=== PATIENT | male | born 1945 | race Caucasian/White ===

== ENCOUNTER 2017-06-16 23:57 | Observation (INO) ==
[2017-06-17] MEDS ORDERED: ASPIRIN 325 MG TABLET PO STA (00:53)
[2017-06-17] MEDS ORDERED: KETOROLAC 30 MG/1 ML VIAL IV STA (00:53)
[2017-06-17] MEDS ORDERED: ASPIRIN 325 MG TABLET ONE (01:51)
[2017-06-17] MEDS ORDERED: KETOROLAC 30 MG/1 ML VIAL ONE (01:51)
[2017-06-17 01:53] LABS: Basophils % 0.8 % (0.0-0.8); Eosinophils # 0.2 10*3/uL (0.0-0.87); Eosinophils % 4.4 % (0.00-10.9); Hematocrit 44.4 VOL% (42.0-52.0); Hemoglobin 14.6 GM/DL (14.0-18.0); Immature Granulocytes % 0.6 %; Immature Granulocytes Absolute 0.03 #; Lymphocytes # 1.7 10*3/uL (1.4-4.0); Lymphocytes % 33.5 % (21.2-54.2); Mean Corpuscular HGB Conc 32.9 GM/DL (32-36); Mean Corpuscular Hemoglobin 31 PG (27-34); Mean Corpuscular Volume 95.3 FL (87-102); Mean Platelet Volume 9.1 FL (9.6-12.0); Monocytes # 0.5 10*3/uL (0.11-0.8); Monocytes % 9.5 % (1.7-12.7); Neutrophils # 2.6 10*3/uL (1.4-7.4); Neutrophils % 51.2 % (38.7-73.9); Platelet Count 150 T/CUMM (130-400); Red Blood Count 4.66 MC/CUMM (3.8-5.5)
[2017-06-17 02:10] LABS: Albumin 3.5 G/DL (3.4-5.0); Bilirubin,Total 0.4 MG/DL (0.2-1.0); Calcium 9.5 MG/DL (8.5-10.1); Osmolality,Calculated 286.4 MOS/KG (273-304); Potassium 4.1 MMOL/L (3.5-5.1); Total Protein 7.5 G/DL (6.4-8.3)
[2017-06-17] MEDS ORDERED: ACETAMINOPHEN 325 MG TABLET PO PRN (04:07)
[2017-06-17] MEDS ORDERED: MORPHINE 2 MG/1 ML SYRINGE IV PRN (04:07)
[2017-06-17] MEDS ORDERED: ONDANSETRON 4 MG/2 ML VIAL IV PRN (04:07)
[2017-06-17] MEDS ORDERED: ALBUTEROL/IPRATROPIUM 3 ML NEB RESP TX PRN (04:12)
[2017-06-17] MEDS ORDERED: GLUCAGON 1 MG VIAL IM PRN (04:29)
[2017-06-17] MEDS ORDERED: DEXTROSE 50% 25 GM/50 ML VIAL IV PRN (04:29)
[2017-06-17 07:26] LABS: Risk Ratio 3.7; VLDL CHOLESTEROL 68.6 MG/DL
[2017-06-17] MEDS: INSULIN LISPRO 100 UNIT/ML SUBCUT SCH ×3 (07:56→15:57)
[2017-06-17] MEDS ORDERED: ASPIRIN 325 MG TABLET PO SCH (09:00)
[2017-06-17] MEDS ORDERED: POLYETHYLENE GLYCOL POWDER 17 GM PACK PO SCH (09:00)
[2017-06-17] MEDS ORDERED: ENOXAPARIN 40 MG/0.4 ML SYRINGE SUBCUT SCH (09:00)
[2017-06-17] MEDS ORDERED: PANTOPRAZOLE 40 MG TABLET PO SCH (09:00)
[2017-06-17 15:44] VITALS: BP 134/71
== END 2017-06-17 17:00 | disposition home or self-care (01) ==
LOC: N.ED 23:57 → N.EDINP 23:57 → N.TELEN 06-17 04:34
PROVIDERS: ADMIT Internal Medicine; ATTEND Internal Medicine

== ENCOUNTER 2018-04-26 05:57 | Inpatient (IN) ==
[2018-04-26] MEDS ORDERED: ERTAPENEM 1,000 MG in SODIUM CHLORIDE 0.9% 100 ML IV ONE (06:00)
[2018-04-26] MEDS ORDERED: ALVIMOPAN 12 MG CAPSULE PO ONE (06:00)
[2018-04-26] MEDS ORDERED: ALVIMOPAN 12 MG CAPSULE ONE (06:12)
[2018-04-26] MEDS ORDERED: ERTAPENEM 1,000 MG VIAL ONE (06:13)
[2018-04-26] MEDS ORDERED: LACTATED RINGERS 1,000 ML IV SCH (07:00)
[2018-04-26] MEDS ORDERED: INDOCYANINE GREEN 25 MG VIAL IV ONE (08:05)
[2018-04-26] MEDS ORDERED: TISSUE ADHESIVE 1 EACH APPLICATOR TOP ONE (08:05)
[2018-04-26] MEDS ORDERED: ONDANSETRON 4 MG/2 ML VIAL ONE ×2 (10:26→10:39)
[2018-04-26] MEDS ORDERED: PROPOFOL 200 MG/20 ML VIAL IV ONE (10:26)
[2018-04-26] MEDS ORDERED: SEVOFLURANE 1 UNIT/15 MINUTE INH ONE (10:26)
[2018-04-26] MEDS ORDERED: fentaNYL 100 MCG/2 ML VIAL ONE (10:26)
[2018-04-26] MEDS ORDERED: ACETAMINOPHEN 1,000 MG/100 ML VIAL IV ONE (10:27)
[2018-04-26] MEDS ORDERED: ROCURONIUM 100 MG/10 ML VIAL IV ONE (10:27)
[2018-04-26] MEDS ORDERED: LACTATED RINGERS 1,000 ML IV ONE (10:27)
[2018-04-26] MEDS ORDERED: NEOSTIGMINE 10 MG/10 ML VIAL ONE (10:27)
[2018-04-26] MEDS ORDERED: GLYCOPYRROLATE 0.4 MG/2 ML VIAL ONE (10:27)
[2018-04-26] MEDS ORDERED: PHENYLEPHRINE 1 MG/10 ML SYRINGE IV ONE (10:27)
[2018-04-26] MEDS ORDERED: ONDANSETRON 4 MG/2 ML VIAL IV PRN ×2 (10:34→11:49)
[2018-04-26] MEDS ORDERED: HYDROmorphone 2 MG/1 ML VIAL ONE (10:39)
[2018-04-26] MEDS: HYDROmorphone 2 MG/1 ML VIAL IV PRN ×4 (10:41→10:56)
[2018-04-26] MEDS ORDERED: HYDROmorphone 2 MG/1 ML VIAL IV PRN (11:49)
[2018-04-26] MEDS ORDERED: PROMETHAZINE 25 MG/1 ML VIAL IM PRN (11:49)
[2018-04-26] MEDS ORDERED: ALBUTEROL 0.63 MG/3 ML NEB RESP TX PRN (12:17)
[2018-04-26] MEDS ORDERED: NON-FORMULARY MEDICATION (Albuterol Sulfate [Ventolin Hfa] 2 PUFF) INH PRN (12:17)
[2018-04-26 12:27] LABS: Basophils % 0.4 % (0.0-0.8); Eosinophils # 0.1 10*3/uL (0.0-0.87); Eosinophils % 1.1 % (0.00-10.9); Hematocrit 43.4 VOL% (42.0-52.0); Hemoglobin 13.6 GM/DL (14.0-18.0); Immature Granulocytes % 0.4 %; Immature Granulocytes Absolute 0.03 #; Lymphocytes # 1.1 10*3/uL (1.4-4.0); Lymphocytes % 13.7 % (21.2-54.2); Mean Corpuscular HGB Conc 31.3 GM/DL (32-36); Mean Corpuscular Hemoglobin 30 PG (27-34); Mean Corpuscular Volume 96.9 FL (87-102); Mean Platelet Volume 8.9 FL (9.6-12.0); Monocytes # 0.4 10*3/uL (0.11-0.8); Monocytes % 4.6 % (1.7-12.7); Neutrophils # 6.4 10*3/uL (1.4-7.4); Neutrophils % 79.8 % (38.7-73.9); Platelet Count 166 T/CUMM (130-400); Red Blood Count 4.48 MC/CUMM (3.8-5.5); Red Cell Distribution Width 13.8 % (9.3-17.3)
[2018-04-26 12:59] LABS: Calcium 8.3 MG/DL (8.5-10.1); Osmolality,Calculated 283.3 MOS/KG (273-304); Potassium 4.5 MMOL/L (3.5-5.1)
[2018-04-26] MEDS: LACTATED RINGERS 1,000 ML IV SCH ×2 (13:25→21:11)
[2018-04-26] MEDS: KETOROLAC 15 MG/1 ML VIAL IV SCH ×2 (15:21→21:02)
[2018-04-26] MEDS: CARBIDOPA/LEVODOPA 25-100 MG TABLET PO SCH ×2 (15:21→21:01)
[2018-04-26] MEDS: PRAMIPEXOLE 1 MG TABLET PO SCH ×2 (15:21→21:01)
[2018-04-26] MEDS: THEOPHYLLINE ER 300 MG TABLET PO SCH (16:20)
[2018-04-26] MEDS: IPRATROPIUM 500 MCG/2.5 ML NEB RESP TX SCH (19:23)
[2018-04-26] MEDS ORDERED: MONTELUKAST 10 MG TABLET PO SCH (21:00)
[2018-04-26] MEDS ORDERED: [UNRECOGNIZED DRUG - OTHER] PO SCH (21:00)
[2018-04-26] MEDS ORDERED: DONEPEZIL 5 MG TABLET PO SCH (21:00)
[2018-04-26] MEDS: DICLOFENAC 1% GEL 100 GM TUBE TOP SCH (21:02)
[2018-04-27] MEDS: KETOROLAC 15 MG/1 ML VIAL IV SCH ×2 (02:54→08:38)
[2018-04-27 05:24] LABS: Calcium 8.1 MG/DL (8.5-10.1); Osmolality,Calculated 281.4 MOS/KG (273-304); Potassium 4.4 MMOL/L (3.5-5.1)
[2018-04-27 05:32] LABS: Basophils % 0.3 % (0.0-0.8); Eosinophils # 0.1 10*3/uL (0.0-0.87); Hematocrit 39.4 VOL% (42.0-52.0); Hemoglobin 12.5 GM/DL (14.0-18.0); Immature Granulocytes % 0.5 %; Immature Granulocytes Absolute 0.04 #; Lymphocytes # 0.9 10*3/uL (1.4-4.0); Lymphocytes % 10.2 % (21.2-54.2); Mean Corpuscular HGB Conc 31.7 GM/DL (32-36); Mean Corpuscular Hemoglobin 30 PG (27-34); Mean Corpuscular Volume 95.6 FL (87-102); Mean Platelet Volume 9.1 FL (9.6-12.0); Monocytes # 0.5 10*3/uL (0.11-0.8); Monocytes % 6.1 % (1.7-12.7); Neutrophils # 7.1 10*3/uL (1.4-7.4); Neutrophils % 81.9 % (38.7-73.9); Platelet Count 146 T/CUMM (130-400); Red Blood Count 4.12 MC/CUMM (3.8-5.5); Red Cell Distribution Width 14.3 % (9.3-17.3); White Blood Count 8.6 T/CUMM (4-12)
[2018-04-27] MEDS: LACTATED RINGERS 1,000 ML IV SCH (05:32)
[2018-04-27] MEDS: IPRATROPIUM 500 MCG/2.5 ML NEB RESP TX SCH (07:45)
[2018-04-27] MEDS ORDERED: IPRATROPIUM 500 MCG/2.5 ML NEB RESP TX SCH (08:00)
[2018-04-27] MEDS: PRAMIPEXOLE 1 MG TABLET PO SCH (08:37)
[2018-04-27] MEDS: THEOPHYLLINE ER 300 MG TABLET PO SCH (08:38)
[2018-04-27] MEDS: CARBIDOPA/LEVODOPA 25-100 MG TABLET PO SCH (08:38)
[2018-04-27] MEDS: DICLOFENAC 1% GEL 100 GM TUBE TOP SCH (08:41)
[2018-04-27] MEDS ORDERED: RASAGILINE 0.5 MG TABLET PO SCH (09:00)
[2018-04-27] MEDS ORDERED: CHOLECALCIFEROL 1,000 UNIT TABLET PO SCH (09:00)
[2018-04-27] MEDS ORDERED: ALVIMOPAN 12 MG CAPSULE PO SCH (09:00)
[2018-04-27] MEDS ORDERED: ENOXAPARIN 40 MG/0.4 ML SYRINGE SUBCUT SCH (09:00)
[2018-04-27 11:39] VITALS: BP 127/59
[2018-05-15] MEDS ORDERED: CYANOCOBALAMIN 1000 MCG/1 ML VIAL SUBCUT SCH (09:00)
== END 2018-04-27 13:30 | disposition home or self-care (01) | DRG 331 ==
LOC: N.OR 05:57 → N.SDSINP 05:57 → N.2E 11:47
PROVIDERS: ADMIT Surgery; ATTEND Surgery

== ENCOUNTER 2022-04-10 10:09 | Observation (INO) ==
[2022-04-10 12:27] LABS: Hematocrit 40.2 VOL% (42.0-52.0); Hemoglobin 13.6 GM/DL (14.0-18.0); Immature Granulocytes % 0.5 %; Immature Granulocytes Absolute 0.02 #; Lymphocytes # 0.3 10*3/uL (1.4-4.0); Lymphocytes % 8.4 % (21.2-54.2); Mean Corpuscular HGB Conc 33.8 GM/DL (32-36); Mean Corpuscular Volume 92.2 FL (87-102); Mean Platelet Volume 9.2 FL (9.6-12.0); Monocytes # 0.3 10*3/uL (0.11-0.8); Monocytes % 8.4 % (1.7-12.7); Neutrophils % 82.7 % (38.7-73.9); Platelet Count 161 T/CUMM (130-400); Red Blood Count 4.36 MC/CUMM (3.8-5.5); Red Cell Distribution Width 13.3 % (9.3-17.3); White Blood Count 3.8 T/CUMM (4-12)
[2022-04-10 12:31] LABS: Albumin 3.2 G/DL (3.4-5.0); Bilirubin,Total 0.8 MG/DL (0.20-1.00); Calcium 8.5 MG/DL (8.5-10.1); Osmolality,Calculated 275.1 MOS/KG (273-304); Potassium 3.4 MMOL/L (3.5-5.1); Total Protein 7.5 G/DL (6.4-8.2)
[2022-04-10 12:50] LABS: PT Patient Result 11.4 SECS (10.1-12.1); Partial Thromboplastin Time 32.8 SECS (23.7-32.9)
[2022-04-10 13:24] LABS: Mucus,Urine Occasional /LPF (Occasional); RBC,Urine 1 /HPF (0-4); Squamous Epithelial Cell,Urine Occasional /HPF (0-10)
[2022-04-10 13:25] LABS: Bilirubin,Urine Small mg/dL (Negative); Glucose,Urine (UA) Negative (Negative); Ketones,Urine 80 mg/dL (Negative); Nitrite,Urine Negative (Negative); Protein,Urine 100 mg/dL (Negative); Urine Appearance Clear (Clear); Urine Color Yellow (Yellow); Urine Specific Gravity > 1.030 (1.001-1.035); Urine pH 5.5 (4.5-8.0)
[2022-04-10 13:26] LABS: Blood, Urine Trace mg/dL (Negative); Urine Urobilinogen 0.2 eU/dL (<2.0)
[2022-04-10] MEDS: SODIUM CHLORIDE 0.9% 1,000 ML IV SCH (14:00)
[2022-04-10] MEDS ORDERED: AZITHROMYCIN INJ 500 MG in SODIUM CHLORIDE 0.9% 250 ML IV ONE (14:21)
[2022-04-10] MEDS ORDERED: ONDANSETRON 4 MG/2 ML VIAL IV PRN (14:23)
[2022-04-10] MEDS ORDERED: DEXTROSE 10% 250 ML BAG IV PRN (14:23)
[2022-04-10] MEDS ORDERED: GLUCAGON 1 MG VIAL IM PRN (14:23)
[2022-04-10] MEDS ORDERED: hydrALAZINE 20 MG/1 ML VIAL IV PRN (14:23)
[2022-04-10] MEDS ORDERED: ACETAMINOPHEN 325 MG TABLET PO PRN (14:23)
[2022-04-10] MEDS ORDERED: POTASSIUM BICARB EFFERVESCENT 20 MEQ TAB.EFF PO ONE (15:55)
[2022-04-10] MEDS ORDERED: ALBUTEROL 0.63 MG/3 ML NEB RESP TX PRN (15:55)
[2022-04-10 16:08] LABS: Ferritin 553.6 ng/mL (26-388)
[2022-04-10] MEDS: cefTRIAXone 1,000 MG in SODIUM CHLORIDE 0.9% 100 ML IV SCH (16:27)
[2022-04-10 17:32] LABS: % Iron Saturation 9.3 % (18-50)
[2022-04-10 17:44] LABS: Folate 9.23 NG/ML (5.38-24.0); Vitamin B12 > 2000 PG/ML (211-911)
[2022-04-10] MEDS ORDERED: ALBUTEROL INHALER 18 GM INH PRN (19:03)
[2022-04-10] MEDS: THEOPHYLLINE ER 300 MG TABLET PO SCH (21:20)
[2022-04-10] MEDS: guaiFENesin/DM ER 600-30 MG TABLET PO SCH (21:20)
[2022-04-10] MEDS: BUDESONIDE/FORMOTEROL 160-4.5 INHALER 6 GM INH SCH (21:20)
[2022-04-10] MEDS: FAMOTIDINE 20 MG TABLET PO SCH (21:21)
[2022-04-10] MEDS: ASCORBIC ACID 500 MG TABLET PO SCH (21:21)
[2022-04-10] MEDS: CARBIDOPA/LEVODOPA 25-100 MG TABLET PO SCH (21:21)
[2022-04-10] MEDS: ALBUTEROL 2 MG TABLET PO SCH (21:21)
[2022-04-10] MEDS: ENOXAPARIN 40 MG/0.4 ML SYRINGE SUBCUT SCH (21:21)
[2022-04-10] MEDS: QUEtiapine 25 MG TABLET PO SCH (21:21)
[2022-04-11 05:57] LABS: Basophils % 0.4 % (0.0-0.8); Eosinophils % 0.4 % (0.00-10.9); Hematocrit 37.6 VOL% (42.0-52.0); Hemoglobin 12.5 GM/DL (14.0-18.0); Immature Granulocytes % 0.4 %; Immature Granulocytes Absolute 0.01 #; Lymphocytes # 0.7 10*3/uL (1.4-4.0); Lymphocytes % 29.4 % (21.2-54.2); Mean Corpuscular HGB Conc 33.2 GM/DL (32-36); Mean Corpuscular Volume 94.5 FL (87-102); Mean Platelet Volume 9.4 FL (9.6-12.0); Monocytes # 0.4 10*3/uL (0.11-0.8); Monocytes % 14.5 % (1.7-12.7); Neutrophils % 54.9 % (38.7-73.9); Red Blood Count 3.98 MC/CUMM (3.8-5.5); Red Cell Distribution Width 13.4 % (9.3-17.3)
[2022-04-11 05:57] LABS: PT Patient Result 11.5 SECS (10.1-12.1)
[2022-04-11 06:00] LABS: Platelet Count 124 T/CUMM (130-400); White Blood Count 2.5 T/CUMM (4-12)
[2022-04-11 06:37] LABS: Albumin 2.4 G/DL (3.4-5.0); Bilirubin,Total 0.5 MG/DL (0.20-1.00); Calcium 7.8 MG/DL (8.5-10.1); Ferritin 476.7 ng/mL (26-388); Osmolality,Calculated 280.4 MOS/KG (273-304); Potassium 3.4 MMOL/L (3.5-5.1); Total Protein 6.6 G/DL (6.4-8.2)
[2022-04-11 06:59] LABS: Risk Ratio 1.97; Thyroid Stimulating Hormone 0.853 uIU/ml (0.358-3.74); VLDL Cholesterol 15.2 MG/DL
[2022-04-11 07:28] LABS: Sedimentation Rate-Westergren 40 MM/HR (0-20)
[2022-04-11] MEDS ORDERED: POTASSIUM CHLORIDE 20 MEQ TABLET PO ONE (07:34)
[2022-04-11] MEDS: guaiFENesin/DM ER 600-30 MG TABLET PO SCH ×2 (10:15→22:12)
[2022-04-11] MEDS: THEOPHYLLINE ER 300 MG TABLET PO SCH ×2 (10:15→16:52)
[2022-04-11] MEDS: DEXAMETHASONE 4 MG TABLET PO SCH (10:15)
[2022-04-11] MEDS: ALBUTEROL 2 MG TABLET PO SCH ×3 (10:44→22:12)
[2022-04-11] MEDS: FAMOTIDINE 20 MG TABLET PO SCH ×2 (10:44→22:13)
[2022-04-11] MEDS: cefTRIAXone 1,000 MG in SODIUM CHLORIDE 0.9% 100 ML IV SCH (10:44)
[2022-04-11] MEDS: CHOLECALCIFEROL 1,000 UNIT TABLET PO SCH (10:45)
[2022-04-11] MEDS: BUDESONIDE/FORMOTEROL 160-4.5 INHALER 6 GM INH SCH ×2 (10:45→22:14)
[2022-04-11] MEDS: CARBIDOPA/LEVODOPA 25-100 MG TABLET PO SCH ×3 (10:45→22:13)
[2022-04-11] MEDS: AZITHROMYCIN 250 MG TABLET PO SCH (10:45)
[2022-04-11] MEDS: ZINC GLUCONATE 50 MG TABLET PO SCH (10:45)
[2022-04-11] MEDS: ASCORBIC ACID 500 MG TABLET PO SCH ×2 (10:45→22:12)
[2022-04-11] MEDS: CETIRIZINE 10 MG TABLET PO SCH (10:45)
[2022-04-11] MEDS: SODIUM CHLORIDE 0.9% 1,000 ML IV SCH (15:10)
[2022-04-11] MEDS: QUEtiapine 25 MG TABLET PO SCH (22:12)
[2022-04-11] MEDS: ENOXAPARIN 40 MG/0.4 ML SYRINGE SUBCUT SCH (22:12)
[2022-04-12 04:38] LABS: Hematocrit 42.7 VOL% (42.0-52.0); Hemoglobin 14.2 GM/DL (14.0-18.0); Immature Granulocytes % 0.6 %; Immature Granulocytes Absolute 0.01 #; Lymphocytes # 0.3 10*3/uL (1.4-4.0); Lymphocytes % 16.4 % (21.2-54.2); Mean Corpuscular HGB Conc 33.3 GM/DL (32-36); Mean Corpuscular Volume 93.6 FL (87-102); Mean Platelet Volume 8.8 FL (9.6-12.0); Monocytes # 0.3 10*3/uL (0.11-0.8); Monocytes % 16.4 % (1.7-12.7); Neutrophils % 66.6 % (38.7-73.9); Platelet Count 134 T/CUMM (130-400); Red Blood Count 4.56 MC/CUMM (3.8-5.5); Red Cell Distribution Width 13.3 % (9.3-17.3); White Blood Count 1.7 T/CUMM (4-12)
[2022-04-12 04:54] LABS: Calcium 8.6 MG/DL (8.5-10.1); Osmolality,Calculated 286.1 MOS/KG (273-304); Potassium 4.2 MMOL/L (3.5-5.1)
[2022-04-12 05:10] LABS: Band Neutrophils 1 % (0-10); Lymphocytes 12 % (20-55); Total Cells Counted 100
[2022-04-12 05:11] LABS: Platelet Estimate Adequate
[2022-04-12 09:36] VITALS: BP 161/82
[2022-04-12] MEDS: ALBUTEROL 2 MG TABLET PO SCH (09:53)
[2022-04-12] MEDS: CETIRIZINE 10 MG TABLET PO SCH (09:53)
[2022-04-12] MEDS: THEOPHYLLINE ER 300 MG TABLET PO SCH (09:53)
[2022-04-12] MEDS: CARBIDOPA/LEVODOPA 25-100 MG TABLET PO SCH (09:54)
[2022-04-12] MEDS: guaiFENesin/DM ER 600-30 MG TABLET PO SCH (09:54)
[2022-04-12] MEDS: ASCORBIC ACID 500 MG TABLET PO SCH (09:54)
[2022-04-12] MEDS: ZINC GLUCONATE 50 MG TABLET PO SCH (09:54)
[2022-04-12] MEDS: CHOLECALCIFEROL 1,000 UNIT TABLET PO SCH (09:54)
[2022-04-12] MEDS: DEXAMETHASONE 4 MG TABLET PO SCH (09:55)
[2022-04-12] MEDS: AZITHROMYCIN 250 MG TABLET PO SCH (09:55)
[2022-04-12] MEDS: cefTRIAXone 1,000 MG in SODIUM CHLORIDE 0.9% 100 ML IV SCH (09:55)
[2022-04-12] MEDS: FAMOTIDINE 20 MG TABLET PO SCH (09:55)
[2022-04-12] MEDS: BUDESONIDE/FORMOTEROL 160-4.5 INHALER 6 GM INH SCH (09:59)
== END 2022-04-12 11:32 | disposition home health service (06) ==
LOC: N.ED 10:09 → N.EDINP 10:09 → SUATTDRO 14:23 → N.EDINP 18:01 → N.5E 18:54
PROVIDERS: ADMIT Internal Medicine; ATTEND Internal Medicine

== ENCOUNTER 2022-05-12 08:05 | Inpatient (IN) ==
[2022-05-12] MEDS ORDERED: SODIUM CHLORIDE 0.9% 1,000 ML IV STA (08:23)
[2022-05-12 08:42] LABS: Basophils % 0.3 % (0.0-0.8); Hematocrit 44.3 VOL% (42.0-52.0); Hemoglobin 13.9 GM/DL (14.0-18.0); Immature Granulocytes % 0.4 %; Immature Granulocytes Absolute 0.04 #; Lymphocytes # 0.9 10*3/uL (1.4-4.0); Lymphocytes % 9.7 % (21.2-54.2); Mean Corpuscular HGB Conc 31.4 GM/DL (32-36); Mean Corpuscular Volume 96.5 FL (87-102); Mean Platelet Volume 9.3 FL (9.6-12.0); Monocytes # 0.6 10*3/uL (0.11-0.8); Monocytes % 6.8 % (1.7-12.7); Neutrophils % 82.8 % (38.7-73.9); Platelet Count 218 T/CUMM (130-400); Red Blood Count 4.59 MC/CUMM (3.8-5.5); Red Cell Distribution Width 14.1 % (9.3-17.3)
[2022-05-12] MEDS ORDERED: ALBUTEROL 2.5 MG/3 ML NEB RESP TX STA (08:42)
[2022-05-12 08:52] LABS: INR 1.1; PT Patient Result 12.3 SECS (10.1-12.1); Partial Thromboplastin Time 23.1 SECS (23.7-32.9)
[2022-05-12 09:07] LABS: Band Neutrophils 4 % (0-10); Hypochromia Slight; Lymphocytes 6 % (20-55); Platelet Estimate Adequate; Total Cells Counted 100
[2022-05-12 09:11] LABS: Arterial Base Excess iSTAT 4 MMOL/L (-2.5-2.5); Arterial Bicarbonate iSTAT 27.3 MMOL/L (20-26); Arterial O2 Saturation iSTAT 95 % (95-100); Arterial PCO2 iSTAT 38 MM HG (35-48); Arterial PO2 iSTAT 68 MM HG (80-95); Arterial Total CO2 iSTAT 28 MMO/L (23-27); Arterial pH iSTAT 7.471 (7.35-7.45)
[2022-05-12 09:14] LABS: Albumin 2.8 G/DL (3.4-5.0); Bilirubin,Total 1.2 MG/DL (0.20-1.00); Calcium 9.4 MG/DL (8.5-10.1); Osmolality,Calculated 307.6 MOS/KG (273-304); Thyroid Stimulating Hormone 1.84 uIU/ml (0.358-3.74); Total Protein 8.2 G/DL (6.4-8.2)
[2022-05-12 09:44] LABS: Glucose,Urine (UA) 100 mg/dL (Negative); Hyaline Casts,Urine 3 /LPF (0-3); Ketones,Urine Trace mg/dL (Negative); Mucus,Urine Occasional /LPF (Occasional); Protein,Urine Trace mg/dL (Negative); RBC,Urine 1 /HPF (0-4); Urine Appearance Clear (Clear); Urine Color Amber (Yellow); Urine Specific Gravity > 1.030 (1.001-1.035)
[2022-05-12 09:45] LABS: Bilirubin,Urine Negative (Negative); Blood, Urine Negative (Negative); Nitrite,Urine Negative (Negative); Urine Urobilinogen 0.2 eU/dL (<2.0)
[2022-05-12 09:51] LABS: Barbiturates Screen,Urine Negative (Negative); Benzodiazepines Screen,Urine Negative (Negative); Cannabinoid Screen,Urine Negative (Negative); Opiate Screen,Urine Negative (Negative); Phencyclidine Screen,Urine Negative (Negative)
[2022-05-12] MEDS ORDERED: ZALEPLON 5 MG CAPSULE PO PRN (09:55)
[2022-05-12] MEDS ORDERED: ONDANSETRON 4 MG/2 ML VIAL IV PRN (09:55)
[2022-05-12] MEDS ORDERED: guaiFENesin/DM ER 600-30 MG TABLET PO PRN (09:55)
[2022-05-12] MEDS ORDERED: diphenhydrAMINE CAP 25 MG CAPSULE PO PRN (09:55)
[2022-05-12] MEDS ORDERED: NICOTINE 21 MG/24 HR PATCH TRANSDERM PRN (09:55)
[2022-05-12] MEDS ORDERED: PIPERACILLIN/TAZOBACTAM 3,375 MG in SODIUM CHLORIDE 0.9% 100 ML IV STA (10:15)
[2022-05-12] MEDS ORDERED: VANCOMYCIN INJ 1,000 MG in SODIUM CHLORIDE 0.9% 250 ML IV STA (10:15)
[2022-05-12] MEDS: SODIUM CHLORIDE 0.9% 1,000 ML IV SCH (10:16)
[2022-05-12] MEDS: INSULIN LISPRO 100 UNIT/ML SUBCUT SCH ×2 (12:11→18:11)
[2022-05-12] MEDS: ALBUTEROL/IPRATROPIUM 3 ML NEB RESP TX SCH (18:02)
[2022-05-12] MEDS: PIPERACILLIN/TAZOBACTAM 3,375 MG in SODIUM CHLORIDE 0.9% 100 ML IV SCH (18:11)
[2022-05-13] MEDS: ALBUTEROL/IPRATROPIUM 3 ML NEB RESP TX SCH ×5 (00:03→19:00)
[2022-05-13] MEDS: INSULIN LISPRO 100 UNIT/ML SUBCUT SCH ×4 (00:39→17:24)
[2022-05-13] MEDS: SODIUM CHLORIDE 0.9% 1,000 ML IV SCH (00:39)
[2022-05-13] MEDS: PIPERACILLIN/TAZOBACTAM 3,375 MG in SODIUM CHLORIDE 0.9% 100 ML IV SCH ×3 (03:13→17:35)
[2022-05-13 03:59] LABS: Basophils % 0.2 % (0.0-0.8); Hemoglobin 11.9 GM/DL (14.0-18.0); Immature Granulocytes % 0.6 %; Immature Granulocytes Absolute 0.06 #; Lymphocytes # 0.7 10*3/uL (1.4-4.0); Lymphocytes % 7.6 % (21.2-54.2); Mean Corpuscular HGB Conc 31.3 GM/DL (32-36); Mean Corpuscular Volume 95.7 FL (87-102); Mean Platelet Volume 9.8 FL (9.6-12.0); Monocytes # 0.4 10*3/uL (0.11-0.8); Monocytes % 3.9 % (1.7-12.7); Neutrophils % 87.7 % (38.7-73.9); Platelet Count 167 T/CUMM (130-400); Red Blood Count 3.97 MC/CUMM (3.8-5.5); Red Cell Distribution Width 14.4 % (9.3-17.3); White Blood Count 9.4 T/CUMM (4-12)
[2022-05-13 04:24] LABS: Lymphocytes 5 % (20-55); Platelet Estimate Adequate; Total Cells Counted 100
[2022-05-13 04:28] LABS: Albumin 2.2 G/DL (3.4-5.0); Bilirubin,Total 0.9 MG/DL (0.20-1.00); Calcium 8.2 MG/DL (8.5-10.1); Osmolality,Calculated 312.7 MOS/KG (273-304); Potassium 3.5 MMOL/L (3.5-5.1); Total Protein 6.9 G/DL (6.4-8.2)
[2022-05-13] MEDS: VANCOMYCIN INJ 1,000 MG in SODIUM CHLORIDE 0.9% 250 ML IV SCH (07:13)
[2022-05-13] MEDS: PANTOPRAZOLE 40 MG TABLET PO SCH (08:29)
[2022-05-13] MEDS: DEXTROSE 5% 1,000 ML IV SCH ×2 (08:30→17:34)
[2022-05-14] MEDS: ALBUTEROL/IPRATROPIUM 3 ML NEB RESP TX SCH ×4 (00:05→19:01)
[2022-05-14] MEDS: VANCOMYCIN INJ 1,000 MG in SODIUM CHLORIDE 0.9% 250 ML IV SCH (00:19)
[2022-05-14] MEDS: INSULIN LISPRO 100 UNIT/ML SUBCUT SCH ×4 (00:19→17:50)
[2022-05-14] MEDS: PIPERACILLIN/TAZOBACTAM 3,375 MG in SODIUM CHLORIDE 0.9% 100 ML IV SCH ×2 (02:58→09:50)
[2022-05-14 04:49] LABS: Basophils % 0.2 % (0.0-0.8); Eosinophils % 0.1 % (0.00-10.9); Hematocrit 35.8 VOL% (42.0-52.0); Hemoglobin 11.6 GM/DL (14.0-18.0); Immature Granulocytes % 0.8 %; Immature Granulocytes Absolute 0.07 #; Lymphocytes # 0.7 10*3/uL (1.4-4.0); Lymphocytes % 8.3 % (21.2-54.2); Mean Corpuscular HGB Conc 32.4 GM/DL (32-36); Mean Corpuscular Volume 96.5 FL (87-102); Mean Platelet Volume 9.7 FL (9.6-12.0); Monocytes # 0.3 10*3/uL (0.11-0.8); Monocytes % 3.8 % (1.7-12.7); Neutrophils % 86.8 % (38.7-73.9); Platelet Count 165 T/CUMM (130-400); Red Blood Count 3.71 MC/CUMM (3.8-5.5); Red Cell Distribution Width 14.6 % (9.3-17.3); White Blood Count 8.4 T/CUMM (4-12)
[2022-05-14 05:10] LABS: Bilirubin,Total 0.8 MG/DL (0.20-1.00); Calcium 8.3 MG/DL (8.5-10.1); Osmolality,Calculated 317.2 MOS/KG (273-304); Potassium 3.3 MMOL/L (3.5-5.1); Total Protein 6.5 G/DL (6.4-8.2)
[2022-05-14 05:21] LABS: Band Neutrophils 22 % (0-10); Lymphocytes 6 % (20-55); Platelet Estimate Normal; Total Cells Counted 100
[2022-05-14 05:22] LABS: Anisocytosis Slight; Macrocytosis Slight
[2022-05-14] MEDS: DEXTROSE 5% 1,000 ML IV SCH ×3 (07:00→13:19)
[2022-05-14] MEDS: PANTOPRAZOLE 40 MG TABLET PO SCH (08:10)
[2022-05-14] MEDS: PANTOPRAZOLE 40 MG VIAL IV SCH (09:51)
[2022-05-14] MEDS: POTASSIUM CHLORIDE RIDER 10 MEQ/100 ML PREMIX IV PRN ×6 (09:51→18:40)
[2022-05-14] MEDS: MEROPENEM 500 MG in SODIUM CHLORIDE 0.9% 100 ML IV SCH ×2 (16:09→21:35)
[2022-05-15] MEDS: INSULIN LISPRO 100 UNIT/ML SUBCUT SCH ×4 (00:08→17:47)
[2022-05-15] MEDS: ALBUTEROL/IPRATROPIUM 3 ML NEB RESP TX SCH ×4 (00:25→19:05)
[2022-05-15] MEDS: ACETAMINOPHEN 650 MG SUPP RECTAL PRN ×2 (00:51→13:20)
[2022-05-15] MEDS: MEROPENEM 500 MG in SODIUM CHLORIDE 0.9% 100 ML IV SCH ×4 (03:30→22:25)
[2022-05-15 05:13] LABS: Basophils % 0.2 % (0.0-0.8); Hematocrit 35.7 VOL% (42.0-52.0); Hemoglobin 11.2 GM/DL (14.0-18.0); Immature Granulocytes % 0.7 %; Immature Granulocytes Absolute 0.06 #; Lymphocytes # 0.8 10*3/uL (1.4-4.0); Lymphocytes % 9.4 % (21.2-54.2); Mean Corpuscular HGB Conc 31.4 GM/DL (32-36); Mean Corpuscular Volume 95.7 FL (87-102); Mean Platelet Volume 9.8 FL (9.6-12.0); Monocytes # 0.4 10*3/uL (0.11-0.8); Monocytes % 4.8 % (1.7-12.7); Neutrophils % 84.9 % (38.7-73.9); Platelet Count 160 T/CUMM (130-400); Red Blood Count 3.73 MC/CUMM (3.8-5.5); Red Cell Distribution Width 14.5 % (9.3-17.3); White Blood Count 8.1 T/CUMM (4-12)
[2022-05-15 05:32] LABS: Lymphocytes 6 % (20-55); Platelet Estimate Adequate; Total Cells Counted 100
[2022-05-15 05:36] LABS: Albumin 1.8 G/DL (3.4-5.0); Bilirubin,Total 0.8 MG/DL (0.20-1.00); Calcium 7.8 MG/DL (8.5-10.1); Osmolality,Calculated 308.9 MOS/KG (273-304); Potassium 3.8 MMOL/L (3.5-5.1); Total Protein 6.2 G/DL (6.4-8.2)
[2022-05-15] MEDS: DEXTROSE 5% 1,000 ML IV SCH ×3 (09:55→22:25)
[2022-05-15] MEDS: PANTOPRAZOLE 40 MG VIAL IV SCH (09:55)
[2022-05-16] MEDS: hydrALAZINE 20 MG/1 ML VIAL IV PRN (00:22)
[2022-05-16] MEDS: ACETAMINOPHEN 650 MG SUPP RECTAL PRN (00:22)
[2022-05-16] MEDS: INSULIN LISPRO 100 UNIT/ML SUBCUT SCH ×4 (00:22→17:29)
[2022-05-16] MEDS: ALBUTEROL/IPRATROPIUM 3 ML NEB RESP TX SCH ×4 (01:45→19:29)
[2022-05-16] MEDS: MEROPENEM 500 MG in SODIUM CHLORIDE 0.9% 100 ML IV SCH ×4 (03:03→21:27)
[2022-05-16 05:05] LABS: Basophils % 0.2 % (0.0-0.8); Hematocrit 35.7 VOL% (42.0-52.0); Hemoglobin 11.8 GM/DL (14.0-18.0); Immature Granulocytes % 2.5 %; Lymphocytes # 0.7 10*3/uL (1.4-4.0); Lymphocytes % 8.4 % (21.2-54.2); Mean Corpuscular HGB Conc 33.1 GM/DL (32-36); Mean Corpuscular Volume 93.5 FL (87-102); Mean Platelet Volume 10.3 FL (9.6-12.0); Monocytes # 0.4 10*3/uL (0.11-0.8); Neutrophils % 83.9 % (38.7-73.9); Platelet Count 152 T/CUMM (130-400); Red Blood Count 3.82 MC/CUMM (3.8-5.5); Red Cell Distribution Width 14.3 % (9.3-17.3); White Blood Count 8.1 T/CUMM (4-12)
[2022-05-16 05:22] LABS: Albumin 1.5 G/DL (3.4-5.0); Bilirubin,Total 1.2 MG/DL (0.20-1.00); Calcium 7.2 MG/DL (8.5-10.1); Osmolality,Calculated 301.4 MOS/KG (273-304); Potassium 3.7 MMOL/L (3.5-5.1); Total Protein 5.9 G/DL (6.4-8.2)
[2022-05-16] MEDS: DEXTROSE 5% 1,000 ML IV SCH ×2 (05:28→15:40)
[2022-05-16 05:36] LABS: Band Neutrophils 1 % (0-10); Lymphocytes 3 % (20-55); Platelet Estimate Adequate; Total Cells Counted 100
[2022-05-16] MEDS: PANTOPRAZOLE 40 MG VIAL IV SCH (08:16)
[2022-05-16] MEDS: ACETAMINOPHEN 325 MG TABLET PO PRN (20:51)
[2022-05-17] MEDS: INSULIN LISPRO 100 UNIT/ML SUBCUT SCH ×4 (00:48→17:02)
[2022-05-17] MEDS: ALBUTEROL/IPRATROPIUM 3 ML NEB RESP TX SCH ×4 (01:00→20:08)
[2022-05-17] MEDS: DEXTROSE 5% 1,000 ML IV SCH ×2 (01:02→11:09)
[2022-05-17] MEDS: MEROPENEM 500 MG in SODIUM CHLORIDE 0.9% 100 ML IV SCH (03:54)
[2022-05-17] MEDS: ACETAMINOPHEN 325 MG TABLET PO PRN (04:55)
[2022-05-17 05:25] LABS: Basophils % 0.3 % (0.0-0.8); Eosinophils % 0.1 % (0.00-10.9); Hematocrit 33.8 VOL% (42.0-52.0); Hemoglobin 10.9 GM/DL (14.0-18.0); Immature Granulocytes % 1.4 %; Immature Granulocytes Absolute 0.11 #; Lymphocytes # 0.7 10*3/uL (1.4-4.0); Lymphocytes % 8.7 % (21.2-54.2); Mean Corpuscular HGB Conc 32.2 GM/DL (32-36); Mean Corpuscular Volume 93.4 FL (87-102); Mean Platelet Volume 10.4 FL (9.6-12.0); Monocytes # 0.3 10*3/uL (0.11-0.8); Neutrophils % 85.5 % (38.7-73.9); Platelet Count 133 T/CUMM (130-400); Red Blood Count 3.62 MC/CUMM (3.8-5.5); Red Cell Distribution Width 14.3 % (9.3-17.3); White Blood Count 7.8 T/CUMM (4-12)
[2022-05-17 05:38] LABS: Calcium 7.3 MG/DL (8.5-10.1); Osmolality,Calculated 291.3 MOS/KG (273-304); Potassium 3.3 MMOL/L (3.5-5.1)
[2022-05-17 05:47] LABS: Band Neutrophils 7 % (0-10); Lymphocytes 8 % (20-55); Total Cells Counted 100
[2022-05-17 05:48] LABS: Platelet Estimate Adequate
[2022-05-17] MEDS ORDERED: POTASSIUM CHLORIDE 20 MEQ TABLET PO ONE (07:03)
[2022-05-17] MEDS ORDERED: VANCOMYCIN INJ 1,250 MG in SODIUM CHLORIDE 0.9% 250 ML IV SCH (07:30)
[2022-05-17] MEDS: PANTOPRAZOLE 40 MG VIAL IV SCH (09:23)
[2022-05-17] MEDS: CEFEPIME 1,000 MG in SODIUM CHLORIDE 0.9% 100 ML IV SCH ×3 (10:26→21:20)
[2022-05-17] MEDS: LEVOFLOXACIN INJ 750 MG/150 ML PREMIX IV SCH (10:27)
[2022-05-17] MEDS: VANCOMYCIN INJ 1,000 MG in SODIUM CHLORIDE 0.9% 250 ML IV SCH (13:20)
[2022-05-17] MEDS: ACETAMINOPHEN 650 MG SUPP RECTAL PRN ×2 (15:13→21:21)
[2022-05-18] MEDS: INSULIN LISPRO 100 UNIT/ML SUBCUT SCH ×4 (00:09→17:34)
[2022-05-18] MEDS: ALBUTEROL/IPRATROPIUM 3 ML NEB RESP TX SCH ×4 (00:24→19:30)
[2022-05-18] MEDS: DEXTROSE 5% 1,000 ML IV SCH ×2 (03:48→08:13)
[2022-05-18] MEDS: CEFEPIME 1,000 MG in SODIUM CHLORIDE 0.9% 100 ML IV SCH ×4 (03:48→21:07)
[2022-05-18 05:15] LABS: Basophils % 0.2 % (0.0-0.8); Eosinophils # 0.1 10*3/uL (0.0-0.87); Eosinophils % 0.5 % (0.00-10.9); Hematocrit 33.5 VOL% (42.0-52.0); Immature Granulocytes % 0.9 %; Immature Granulocytes Absolute 0.09 #; Lymphocytes # 0.8 10*3/uL (1.4-4.0); Lymphocytes % 8.7 % (21.2-54.2); Mean Corpuscular HGB Conc 32.8 GM/DL (32-36); Mean Corpuscular Volume 91.5 FL (87-102); Mean Platelet Volume 10.4 FL (9.6-12.0); Monocytes # 0.4 10*3/uL (0.11-0.8); Monocytes % 4.1 % (1.7-12.7); Neutrophils % 85.6 % (38.7-73.9); Platelet Count 130 T/CUMM (130-400); Red Blood Count 3.66 MC/CUMM (3.8-5.5); White Blood Count 9.5 T/CUMM (4-12)
[2022-05-18 05:24] LABS: INR 1.1; PT Patient Result 12.3 SECS (10.1-12.1); Partial Thromboplastin Time 31.8 SECS (23.7-32.9)
[2022-05-18 05:40] LABS: Calcium 7.2 MG/DL (8.5-10.1); Osmolality,Calculated 281.7 MOS/KG (273-304); Potassium 3.9 MMOL/L (3.5-5.1)
[2022-05-18 05:41] LABS: Lymphocytes 3 % (20-55); Platelet Estimate Normal; Total Cells Counted 100
[2022-05-18] MEDS: PANTOPRAZOLE 40 MG VIAL IV SCH (08:13)
[2022-05-18] MEDS: LEVOFLOXACIN INJ 750 MG/150 ML PREMIX IV SCH (10:24)
[2022-05-18] MEDS: MICAFUNGIN 100 MG in SODIUM CHLORIDE 0.9% 100 ML IV SCH (12:05)
[2022-05-18] MEDS: CARBIDOPA/LEVODOPA 25-100 MG TABLET NG SCH (12:05)
[2022-05-18] MEDS: VANCOMYCIN INJ 1,000 MG in SODIUM CHLORIDE 0.9% 250 ML IV SCH (12:05)
[2022-05-18] MEDS: ENTACAPONE 200 MG TABLET NG SCH ×2 (14:23→21:07)
[2022-05-18] MEDS: BENZTROPINE 0.5 MG TABLET NG SCH ×2 (14:23→21:07)
[2022-05-18] MEDS: QUEtiapine 25 MG TABLET NG SCH (21:10)
[2022-05-19] MEDS: ALBUTEROL/IPRATROPIUM 3 ML NEB RESP TX SCH ×4 (00:07→18:58)
[2022-05-19] MEDS: INSULIN LISPRO 100 UNIT/ML SUBCUT SCH ×4 (01:16→18:12)
[2022-05-19] MEDS: CEFEPIME 1,000 MG in SODIUM CHLORIDE 0.9% 100 ML IV SCH ×4 (02:22→20:31)
[2022-05-19 05:22] LABS: Basophils % 0.3 % (0.0-0.8); Eosinophils # 0.1 10*3/uL (0.0-0.87); Eosinophils % 0.7 % (0.00-10.9); Hematocrit 31.8 VOL% (42.0-52.0); Hemoglobin 10.4 GM/DL (14.0-18.0); Lymphocytes # 0.8 10*3/uL (1.4-4.0); Lymphocytes % 7.6 % (21.2-54.2); Mean Corpuscular HGB Conc 32.7 GM/DL (32-36); Mean Corpuscular Volume 92.2 FL (87-102); Mean Platelet Volume 10.6 FL (9.6-12.0); Monocytes # 0.4 10*3/uL (0.11-0.8); Monocytes % 4.5 % (1.7-12.7); Neutrophils % 85.9 % (38.7-73.9); Platelet Count 137 T/CUMM (130-400); Red Blood Count 3.45 MC/CUMM (3.8-5.5); Red Cell Distribution Width 14.2 % (9.3-17.3); White Blood Count 9.9 T/CUMM (4-12)
[2022-05-19 05:49] LABS: Calcium 6.8 MG/DL (8.5-10.1); Osmolality,Calculated 282.4 MOS/KG (273-304); Potassium 3.7 MMOL/L (3.5-5.1)
[2022-05-19 05:49] LABS: Hypochromia Slight; Lymphocytes 6 % (20-55); Microcytosis Slight; Platelet Estimate Adequate; Total Cells Counted 100
[2022-05-19] MEDS: DEXTROSE 5% 1,000 ML IV SCH ×3 (07:04→18:01)
[2022-05-19] MEDS: PANTOPRAZOLE 40 MG VIAL IV SCH (09:44)
[2022-05-19] MEDS: ENTACAPONE 200 MG TABLET NG SCH ×3 (09:45→20:31)
[2022-05-19] MEDS: RASAGILINE 0.5 MG TABLET NG SCH (09:45)
[2022-05-19] MEDS: BENZTROPINE 0.5 MG TABLET NG SCH ×3 (09:46→20:31)
[2022-05-19] MEDS: CARBIDOPA/LEVODOPA 25-100 MG TABLET NG SCH ×2 (09:46→12:36)
[2022-05-19] MEDS: MICAFUNGIN 100 MG in SODIUM CHLORIDE 0.9% 100 ML IV SCH (12:35)
[2022-05-19] MEDS: LEVOFLOXACIN INJ 750 MG/150 ML PREMIX IV SCH (13:56)
[2022-05-19] MEDS: VANCOMYCIN INJ 1,000 MG in SODIUM CHLORIDE 0.9% 250 ML IV SCH (15:43)
[2022-05-19] MEDS: QUEtiapine 25 MG TABLET NG SCH (20:32)
[2022-05-20] MEDS: ALBUTEROL/IPRATROPIUM 3 ML NEB RESP TX SCH ×4 (00:23→19:42)
[2022-05-20] MEDS: CEFEPIME 1,000 MG in SODIUM CHLORIDE 0.9% 100 ML IV SCH ×4 (02:51→21:35)
[2022-05-20 06:15] LABS: Basophils % 0.3 % (0.0-0.8); Eosinophils % 0.4 % (0.00-10.9); Hematocrit 32.9 VOL% (42.0-52.0); Hemoglobin 10.9 GM/DL (14.0-18.0); Immature Granulocytes % 1.3 %; Immature Granulocytes Absolute 0.14 #; Lymphocytes # 0.8 10*3/uL (1.4-4.0); Lymphocytes % 7.8 % (21.2-54.2); Mean Corpuscular HGB Conc 33.1 GM/DL (32-36); Mean Corpuscular Volume 90.9 FL (87-102); Mean Platelet Volume 10.3 FL (9.6-12.0); Monocytes # 0.5 10*3/uL (0.11-0.8); Monocytes % 4.3 % (1.7-12.7); Neutrophils % 85.9 % (38.7-73.9); Platelet Count 169 T/CUMM (130-400); Red Blood Count 3.62 MC/CUMM (3.8-5.5); Red Cell Distribution Width 14.1 % (9.3-17.3); White Blood Count 10.5 T/CUMM (4-12)
[2022-05-20] MEDS: DEXTROSE 5% 1,000 ML IV SCH ×2 (06:15→12:11)
[2022-05-20 06:18] LABS: INR 1.2; PT Patient Result 12.8 SECS (10.1-12.1)
[2022-05-20] MEDS: INSULIN LISPRO 100 UNIT/ML SUBCUT SCH ×5 (06:24→23:55)
[2022-05-20 06:34] LABS: Calcium 7.3 MG/DL (8.5-10.1); Osmolality,Calculated 284.3 MOS/KG (273-304); Potassium 3.3 MMOL/L (3.5-5.1)
[2022-05-20 06:50] LABS: Albumin 1.4 G/DL (3.4-5.0); Bilirubin,Direct 0.42 MG/DL (0.0-0.20); Bilirubin,Indirect 0.5 MG/DL (0.0-1.0); Bilirubin,Total 0.9 MG/DL (0.20-1.00); Total Protein 5.2 G/DL (6.4-8.2)
[2022-05-20 07:06] LABS: Band Neutrophils 15 % (0-10); Lymphocytes 5 % (20-55); Platelet Estimate Normal; Total Cells Counted 100
[2022-05-20 07:07] LABS: Anisocytosis 1+; Macrocytosis Slight
[2022-05-20] MEDS ORDERED: LACTATED RINGERS 1,000 ML IV SCH (08:00)
[2022-05-20] MEDS: POTASSIUM CHLORIDE RIDER 10 MEQ/100 ML PREMIX IV PRN (08:05)
[2022-05-20] MEDS: PANTOPRAZOLE 40 MG VIAL IV SCH (08:07)
[2022-05-20] MEDS ORDERED: KETAMINE 500 MG/10 ML VIAL ONE (09:34)
[2022-05-20] MEDS ORDERED: ETOMIDATE 20 MG/10 ML VIAL IV ONE (09:36)
[2022-05-20] MEDS ORDERED: LIDOCAINE 2% 5 ML VIAL ONE (09:36)
[2022-05-20] MEDS ORDERED: PHENYLEPHRINE 1 MG/10 ML SYRINGE IV ONE (09:43)
[2022-05-20] MEDS: CARBIDOPA/LEVODOPA 25-100 MG TABLET NG SCH ×2 (11:26→12:17)
[2022-05-20] MEDS: RASAGILINE 0.5 MG TABLET NG SCH (11:26)
[2022-05-20] MEDS: ENTACAPONE 200 MG TABLET NG SCH ×3 (11:26→21:35)
[2022-05-20] MEDS: BENZTROPINE 0.5 MG TABLET NG SCH ×3 (11:26→21:35)
[2022-05-20] MEDS: LEVOFLOXACIN INJ 750 MG/150 ML PREMIX IV SCH (14:13)
[2022-05-20] MEDS: ACETAMINOPHEN 325 MG TABLET PO PRN (14:14)
[2022-05-20] MEDS: MICAFUNGIN 100 MG in SODIUM CHLORIDE 0.9% 100 ML IV SCH (15:57)
[2022-05-20] MEDS: MENTHOL/ZINC OXIDE OINT 71 GM JAR TOP SCH ×2 (18:22→21:52)
[2022-05-20] MEDS: QUEtiapine 25 MG TABLET NG SCH (21:35)
[2022-05-21] MEDS: ALBUTEROL/IPRATROPIUM 3 ML NEB RESP TX SCH ×4 (00:34→19:54)
[2022-05-21] MEDS: CEFEPIME 1,000 MG in SODIUM CHLORIDE 0.9% 100 ML IV SCH ×4 (03:12→21:39)
[2022-05-21] MEDS: INSULIN LISPRO 100 UNIT/ML SUBCUT SCH ×3 (06:12→18:17)
[2022-05-21] MEDS: DEXTROSE 5% 1,000 ML IV SCH ×2 (06:25→15:43)
[2022-05-21 07:13] LABS: Basophils % 0.3 % (0.0-0.8); Eosinophils # 0.1 10*3/uL (0.0-0.87); Eosinophils % 0.7 % (0.00-10.9); Hematocrit 32.2 VOL% (42.0-52.0); Hemoglobin 10.5 GM/DL (14.0-18.0); Immature Granulocytes % 1.3 %; Immature Granulocytes Absolute 0.12 #; Lymphocytes # 1.1 10*3/uL (1.4-4.0); Mean Corpuscular HGB Conc 32.6 GM/DL (32-36); Mean Corpuscular Volume 90.4 FL (87-102); Mean Platelet Volume 10.3 FL (9.6-12.0); Monocytes # 0.4 10*3/uL (0.11-0.8); Monocytes % 4.4 % (1.7-12.7); Neutrophils % 81.3 % (38.7-73.9); Platelet Count 193 T/CUMM (130-400); Red Blood Count 3.56 MC/CUMM (3.8-5.5); Red Cell Distribution Width 14.4 % (9.3-17.3)
[2022-05-21 07:40] LABS: Albumin 1.3 G/DL (3.4-5.0); Bilirubin,Total 0.9 MG/DL (0.20-1.00); Calcium 7.3 MG/DL (8.5-10.1); Osmolality,Calculated 284.3 MOS/KG (273-304); Potassium 3.3 MMOL/L (3.5-5.1); Total Protein 5.5 G/DL (6.4-8.2)
[2022-05-21] MEDS: ENTACAPONE 200 MG TABLET NG SCH ×3 (08:44→21:40)
[2022-05-21] MEDS: BENZTROPINE 0.5 MG TABLET NG SCH ×3 (08:44→21:40)
[2022-05-21] MEDS: RASAGILINE 0.5 MG TABLET NG SCH (08:44)
[2022-05-21] MEDS: CARBIDOPA/LEVODOPA 25-100 MG TABLET NG SCH ×2 (08:45→12:01)
[2022-05-21] MEDS: PANTOPRAZOLE 40 MG VIAL IV SCH (08:45)
[2022-05-21] MEDS ORDERED: FUROSEMIDE 40 MG/4 ML VIAL IV ONE (09:59)
[2022-05-21] MEDS: MENTHOL/ZINC OXIDE OINT 71 GM JAR TOP SCH ×2 (11:02→21:40)
[2022-05-21] MEDS: LEVOFLOXACIN INJ 750 MG/150 ML PREMIX IV SCH (11:43)
[2022-05-21] MEDS: POTASSIUM BICARB EFFERVESCENT 20 MEQ TAB.EFF PER TUBE PRN ×3 (11:43→15:45)
[2022-05-21] MEDS: MICAFUNGIN 100 MG in SODIUM CHLORIDE 0.9% 100 ML IV SCH (14:01)
[2022-05-21] MEDS: ACETAMINOPHEN 325 MG TABLET PO PRN (15:44)
[2022-05-21] MEDS: QUEtiapine 25 MG TABLET NG SCH (21:40)
[2022-05-22] MEDS: ALBUTEROL/IPRATROPIUM 3 ML NEB RESP TX SCH ×4 (00:10→19:10)
[2022-05-22] MEDS: INSULIN LISPRO 100 UNIT/ML SUBCUT SCH ×4 (00:35→17:42)
[2022-05-22 00:41] LABS: M. Tuberculosis PCR Result Negative (Negative); M. Tuberculosis PCR Source BRONCH WASH
[2022-05-22] MEDS: CEFEPIME 1,000 MG in SODIUM CHLORIDE 0.9% 100 ML IV SCH ×2 (03:55→08:18)
[2022-05-22] MEDS: DEXTROSE 5% 1,000 ML IV SCH ×2 (03:56→17:15)
[2022-05-22 04:52] LABS: Basophils % 0.4 % (0.0-0.8); Eosinophils % 0.4 % (0.00-10.9); Hematocrit 31.6 VOL% (42.0-52.0); Hemoglobin 10.2 GM/DL (14.0-18.0); Immature Granulocytes Absolute 0.08 #; Lymphocytes % 12.3 % (21.2-54.2); Mean Corpuscular HGB Conc 32.3 GM/DL (32-36); Mean Corpuscular Volume 91.6 FL (87-102); Mean Platelet Volume 10.1 FL (9.6-12.0); Monocytes # 0.5 10*3/uL (0.11-0.8); Monocytes % 6.6 % (1.7-12.7); Neutrophils % 79.3 % (38.7-73.9); Platelet Count 185 T/CUMM (130-400); Red Blood Count 3.45 MC/CUMM (3.8-5.5); Red Cell Distribution Width 14.7 % (9.3-17.3)
[2022-05-22 05:06] LABS: Albumin 1.3 G/DL (3.4-5.0); Bilirubin,Total 0.7 MG/DL (0.20-1.00); Calcium 7.5 MG/DL (8.5-10.1); Osmolality,Calculated 281.7 MOS/KG (273-304); Potassium 3.6 MMOL/L (3.5-5.1); Total Protein 5.5 G/DL (6.4-8.2)
[2022-05-22] MEDS: CARBIDOPA/LEVODOPA 25-100 MG TABLET NG SCH ×2 (10:12→12:47)
[2022-05-22] MEDS: RASAGILINE 0.5 MG TABLET NG SCH (10:12)
[2022-05-22] MEDS: PANTOPRAZOLE 40 MG VIAL IV SCH (10:13)
[2022-05-22] MEDS: MENTHOL/ZINC OXIDE OINT 71 GM JAR TOP SCH ×2 (10:13→21:40)
[2022-05-22] MEDS: ENTACAPONE 200 MG TABLET NG SCH ×3 (10:13→21:40)
[2022-05-22] MEDS: BENZTROPINE 0.5 MG TABLET NG SCH ×3 (10:13→21:40)
[2022-05-22] MEDS: LEVOFLOXACIN INJ 750 MG/150 ML PREMIX IV SCH (11:10)
[2022-05-22] MEDS: MICAFUNGIN 100 MG in SODIUM CHLORIDE 0.9% 100 ML IV SCH (12:47)
[2022-05-22] MEDS: QUEtiapine 25 MG TABLET NG SCH (21:40)
[2022-05-23] MEDS: ALBUTEROL/IPRATROPIUM 3 ML NEB RESP TX SCH ×4 (00:05→19:20)
[2022-05-23] MEDS: INSULIN LISPRO 100 UNIT/ML SUBCUT SCH ×4 (00:30→17:54)
[2022-05-23 06:09] LABS: Basophils % 0.5 % (0.0-0.8); Eosinophils # 0.1 10*3/uL (0.0-0.87); Eosinophils % 0.8 % (0.00-10.9); Hematocrit 32.1 VOL% (42.0-52.0); Hemoglobin 10.7 GM/DL (14.0-18.0); Immature Granulocytes % 1.3 %; Lymphocytes # 0.9 10*3/uL (1.4-4.0); Lymphocytes % 11.8 % (21.2-54.2); Mean Corpuscular HGB Conc 33.3 GM/DL (32-36); Mean Platelet Volume 10.3 FL (9.6-12.0); Monocytes # 0.5 10*3/uL (0.11-0.8); Monocytes % 6.5 % (1.7-12.7); Neutrophils % 79.1 % (38.7-73.9); Platelet Count 193 T/CUMM (130-400); Red Blood Count 3.49 MC/CUMM (3.8-5.5); Red Cell Distribution Width 15.1 % (9.3-17.3)
[2022-05-23 06:35] LABS: Albumin 1.3 G/DL (3.4-5.0); Bilirubin,Total 0.6 MG/DL (0.20-1.00); Calcium 7.5 MG/DL (8.5-10.1); Potassium 4.5 MMOL/L (3.5-5.1); Total Protein 5.6 G/DL (6.4-8.2)
[2022-05-23] MEDS: DEXTROSE 5% 1,000 ML IV SCH (07:30)
[2022-05-23] MEDS: BENZTROPINE 0.5 MG TABLET NG SCH ×3 (09:19→20:40)
[2022-05-23] MEDS: CARBIDOPA/LEVODOPA 25-100 MG TABLET NG SCH ×2 (09:19→12:50)
[2022-05-23] MEDS: RASAGILINE 0.5 MG TABLET NG SCH (09:19)
[2022-05-23] MEDS: OMEPRAZOLE ODT 20 MG TABLET PEG SCH (09:19)
[2022-05-23] MEDS: ENTACAPONE 200 MG TABLET NG SCH ×3 (09:19→20:40)
[2022-05-23] MEDS: MENTHOL/ZINC OXIDE OINT 71 GM JAR TOP SCH ×2 (09:24→20:40)
[2022-05-23] MEDS: LEVOFLOXACIN INJ 750 MG/150 ML PREMIX IV SCH (11:09)
[2022-05-23] MEDS: MICAFUNGIN 100 MG in SODIUM CHLORIDE 0.9% 100 ML IV SCH (12:50)
[2022-05-23] MEDS: QUEtiapine 25 MG TABLET NG SCH (20:40)
[2022-05-24] MEDS: INSULIN LISPRO 100 UNIT/ML SUBCUT SCH ×5 (00:30→23:38)
[2022-05-24 04:46] LABS: Basophils % 0.3 % (0.0-0.8); Eosinophils % 0.5 % (0.00-10.9); Hematocrit 31.5 VOL% (42.0-52.0); Hemoglobin 10.3 GM/DL (14.0-18.0); Immature Granulocytes % 1.3 %; Immature Granulocytes Absolute 0.11 #; Lymphocytes # 1.1 10*3/uL (1.4-4.0); Lymphocytes % 12.9 % (21.2-54.2); Mean Corpuscular HGB Conc 32.7 GM/DL (32-36); Mean Corpuscular Volume 92.4 FL (87-102); Mean Platelet Volume 9.8 FL (9.6-12.0); Monocytes # 0.6 10*3/uL (0.11-0.8); Monocytes % 6.4 % (1.7-12.7); Neutrophils % 78.6 % (38.7-73.9); Platelet Count 194 T/CUMM (130-400); Red Blood Count 3.41 MC/CUMM (3.8-5.5); Red Cell Distribution Width 15.5 % (9.3-17.3); White Blood Count 8.8 T/CUMM (4-12)
[2022-05-24 05:22] LABS: Calcium 7.6 MG/DL (8.5-10.1); Osmolality,Calculated 282.5 MOS/KG (273-304); Potassium 4.4 MMOL/L (3.5-5.1)
[2022-05-24] MEDS: ALBUTEROL/IPRATROPIUM 3 ML NEB RESP TX SCH ×4 (06:53→19:35)
[2022-05-24] MEDS: MICAFUNGIN 100 MG in SODIUM CHLORIDE 0.9% 100 ML IV SCH (09:21)
[2022-05-24] MEDS: ENTACAPONE 200 MG TABLET NG SCH ×3 (09:22→21:05)
[2022-05-24] MEDS: CARBIDOPA/LEVODOPA 25-100 MG TABLET NG SCH ×2 (09:22→11:19)
[2022-05-24] MEDS: RASAGILINE 0.5 MG TABLET NG SCH (09:22)
[2022-05-24] MEDS: MENTHOL/ZINC OXIDE OINT 71 GM JAR TOP SCH ×2 (09:23→21:05)
[2022-05-24] MEDS: BENZTROPINE 0.5 MG TABLET NG SCH ×3 (09:23→21:05)
[2022-05-24] MEDS: OMEPRAZOLE ODT 20 MG TABLET PEG SCH (09:23)
[2022-05-24] MEDS: hydrALAZINE 20 MG/1 ML VIAL IV PRN (09:24)
[2022-05-24] MEDS: LEVOFLOXACIN INJ 750 MG/150 ML PREMIX IV SCH (11:18)
[2022-05-24] MEDS: ACETAMINOPHEN 325 MG TABLET PO PRN (11:19)
[2022-05-24] MEDS ORDERED: FUROSEMIDE 40 MG/4 ML VIAL IV ONE (15:42)
[2022-05-24] MEDS: QUEtiapine 25 MG TABLET NG SCH (21:05)
[2022-05-25 05:23] LABS: Basophils % 0.4 % (0.0-0.8); Eosinophils # 0.1 10*3/uL (0.0-0.87); Hematocrit 32.4 VOL% (42.0-52.0); Hemoglobin 10.7 GM/DL (14.0-18.0); Immature Granulocytes % 1.3 %; Immature Granulocytes Absolute 0.12 #; Lymphocytes # 1.3 10*3/uL (1.4-4.0); Lymphocytes % 13.9 % (21.2-54.2); Mean Platelet Volume 10.3 FL (9.6-12.0); Monocytes # 0.6 10*3/uL (0.11-0.8); Monocytes % 6.3 % (1.7-12.7); Neutrophils % 77.1 % (38.7-73.9); Platelet Count 212 T/CUMM (130-400); Red Blood Count 3.52 MC/CUMM (3.8-5.5); Red Cell Distribution Width 15.8 % (9.3-17.3)
[2022-05-25] MEDS: INSULIN LISPRO 100 UNIT/ML SUBCUT SCH ×2 (05:40→12:00)
[2022-05-25 05:48] LABS: Calcium 7.7 MG/DL (8.5-10.1); Osmolality,Calculated 284.4 MOS/KG (273-304); Potassium 4.3 MMOL/L (3.5-5.1)
[2022-05-25] MEDS: ALBUTEROL/IPRATROPIUM 3 ML NEB RESP TX SCH ×2 (06:40)
[2022-05-25] MEDS ORDERED: LEVOFLOXACIN 750 MG TABLET PO SCH (09:00)
[2022-05-25] MEDS ORDERED: LEVOFLOXACIN 750 MG TABLET PEG SCH (09:00)
[2022-05-25] MEDS: MICAFUNGIN 100 MG in SODIUM CHLORIDE 0.9% 100 ML IV SCH (09:23)
[2022-05-25] MEDS: CARBIDOPA/LEVODOPA 25-100 MG TABLET NG SCH ×2 (09:24→13:59)
[2022-05-25] MEDS: ENTACAPONE 200 MG TABLET NG SCH ×2 (09:24→14:00)
[2022-05-25] MEDS: OMEPRAZOLE ODT 20 MG TABLET PEG SCH (09:24)
[2022-05-25] MEDS: BENZTROPINE 0.5 MG TABLET NG SCH ×2 (09:25→14:00)
[2022-05-25] MEDS: RASAGILINE 0.5 MG TABLET NG SCH (09:25)
[2022-05-25] MEDS: MENTHOL/ZINC OXIDE OINT 71 GM JAR TOP SCH (10:37)
[2022-05-25 12:18] VITALS: BP 112/51
== END 2022-05-25 16:07 | DRG 177 ==
LOC: EDUNIT# → EDBD → N.ED 08:05 → SUATTDRO 10:03 → N.EDINP 10:03 → N.2E 12:13
PROVIDERS: ADMIT Internal Medicine; ATTEND Internal Medicine
PROC: EGDWPEG (ICD-10-PCS; 2022-05-20 11:05)